=== PATIENT | male | born 1960 | race Caucasian/White ===

== ENCOUNTER 2018-01-05 02:22 | Emergency (ER) | payer BC, OTHER ==
[2018-01-05] MEDS ORDERED: Heparin Sodium 5,000 Units/ML Vial IVPUSH ONE ×2 (02:46→03:29)
[2018-01-05 02:59] LABS: CHLORIDE,CL 105 mmol/L (98-107); SODIUM,NA 141 mmol/L (136-145)
[2018-01-05 03:19] VITALS: BP 122/70
--- NOTE | 2018-01-05 03:27 | EDM.PDOC ---
ED HPI GENERAL MEDICAL PROBLEM - General Chief Complaint: Chest Pain Stated Complaint: CHEST Time Seen by Provider: 01/05/18 02:34 Source of Information: Reports: Patient History Limitations: Reports: No Limitations - History of Present Illness INITIAL COMMENTS - FREE TEXT/NARRATIVE: Patient brought in by EMS for complaint of superior sternal chest pain that radiated into patient's neck. Became diaphoretic. Took two nitro. Received 4 baby ASA give by EMS. By time of arrival to ER patient felt that pain had gone away. No SOB/respiratory changes. Has had a few intermittent similar episodes over the years. One formal workup by cardiology did not reveal specific heart disease. Pt was given Nitro to carry and use PRN however. Family hx significant for a brother with CAD. No other complaints at this time. - Related Data Allergies Allergy/AdvReac Type Severity Reaction Status Date / Time hydromorphone [From Dilaudid] Allergy Hypotension Verified 01/05/18 02:50 venom-honey bee Allergy Anaphylactic Verified 10/28/14 07:25 [bee venom (honey bee)] Shock fentanyl AdvReac Hypotension Verified 10/28/14 07:25 hydrocodone AdvReac Tachycardia Verified 10/28/14 07:25 Home Meds: Home Meds Ascorbate Calcium [Vitamin C] 500 mg PO DAILY 11/03/13 [History] Aspirin [Low Dose Aspirin EC] 81 mg PO DAILY 11/03/13 [History] Gluc HCl/Csa/[place] Hy/Hyalur Ac [Glucosamine Chondroitin] 1 each PO DAILY [History] Nitroglycerin [Nitrostat] 1 tab SL ASDIRECTED PRN 11/03/13 [History] Potassium 99 mg PO DAILY 11/03/13 [History] Albuterol Sulfate [Albuterol Sulfate HFA] 2 puff IH Q6HR PRN 10/05/14 [History] [place]-3/DHA/Epa/Fish Oil [Fish Oil 1,000 mg Softgel] 1 each PO DAILY 10/05/14 [ History] traMADol [Ultram] 50 mg PO Q6H PRN 10/28/14 [History] oxyCODONE 20 mg PO ASDIRECTED PRN 01/05/18 [History] Past Medical History Musculoskeletal History: Reports: Back Pain, Chronic Endocrine/Metabolic History: Reports: Obesity/BMI 30+ - Past Surgical History Other Musculoskeletal Surgeries/Procedures:: Remote history of back surgery Social & Family History - Tobacco Use Smoking Status *Q: Current Some Day Smoker Tobacco Use Within Last Twelve Months: Cigars - Alcohol Use Alcohol Use History: Yes Alcohol Use in Last Twelve Months: Yes Alcohol Use Frequency: Socially - Recreational Drug Use Recreational Drug Use: No Drug Use in Last 12 Months: No ED ROS GENERAL - Review of Systems Review Of Systems: See Below Constitutional: Reports: Diaphoresis. Denies: Fever, Weakness, Decreased Appetite HEENT: Reports: No Symptoms Respiratory: Reports: No Symptoms. Denies: Shortness of Breath, Pleuritic Chest Pain Cardiovascular: Reports: Chest Pain. Denies: Dyspnea on Exertion, Lightheadedness, Orthopnea, Palpitations GI/Abdominal: Reports: No Symptoms : Reports: No Symptoms Musculoskeletal: Reports: No Symptoms (no acute changes) Skin: Reports: No Symptoms Neurological: Reports: No Symptoms Psychiatric: Reports: No Symptoms Hematologic/Lymphatic: Reports: No Symptoms ED EXAM, GENERAL - Physical Exam Exam: See Below Exam Limited By: No Limitations General Appearance: Alert, No Apparent Distress, Obese Eye Exam: Bilateral Eye: EOMI, PERRL Ears: Normal External Exam Nose: Normal Inspection. No: Nasal Deformity, Nasal Swelling, Nasal Drainage Throat/Mouth: Normal Inspection, Normal Lips, Normal Voice, No Airway Compromise Head: Atraumatic, Normocephalic Neck: Normal Inspection, Supple, Non-Tender, Full Range of Motion. No: Lymphadenopathy (L), Lymphadenopathy (R) Respiratory/Chest: No Respiratory Distress, Lungs Clear, Normal Breath Sounds, No Accessory Muscle Use, Chest Non-Tender Cardiovascular: Normal Peripheral Pulses, Regular Rate, Rhythm, No Murmur Peripheral Pulses: 2+: Radial (L), Radial (R) GI/Abdominal: Normal Bowel Sounds, Soft, Non-Tender (Male) Exam: Deferred Rectal (Males) Exam: Deferred Back Exam: No: CVA Tenderness (L), CVA Tenderness (R) Extremities: Non-Tender, Normal Capillary Refill Neurological: Alert, Oriented, Normal Cognition, No Motor/Sensory Deficits Psychiatric: Normal Affect, Normal Mood Skin Exam: Warm, Dry, Intact, Normal Color EKG INTERPRETATION EKG Date: 01/05/18 Time: 02:25 Rhythm: Other (Sinus rhythm, 1st degree AV block) Rate (Beats/Min): 72 Zahl: LAD-Left Zahl Deviation P-Wave: Present QRS: Other (incomplete RBBB) ST-T: Other (Mild elevation noted V1-V4, III, AVF) QT: Normal Comparison: NA - No Prior EKG Course - Vital Signs Last Recorded V/S: Last Vital Signs Temp 36.9 C 01/05/18 02:24 Pulse 75 01/05/18 02:58 Resp 17 01/05/18 03:17 BP 122/70 01/05/18 03:17 Pulse Ox 97 01/05/18 03:17 - Orders/Labs/Meds Orders: Active Orders 24 hr Category Date Time Status EKG Documentation Completion [RC] ASDIRECTED Care 01/05/18 02:29 Active Chest 2V [CR] Stat Exams 01/05/18 02:32 Stop Req Heparin Sodium Med 01/05/18 03:29 Once 4,000 units IVPUSH ONETIME ONE Heparin Sodium/D5W [Heparin 25,000 Units in D5W 500 ML] Med 01/05/18 03:30 Ordered 25,000 units in 500 ml IV TITRATE Medication Orders Heparin Sodium/Dextrose (Heparin 25,000 Units In D5w 500 Ml) 25,000 units in 500 mls @ 29.937 mls/hr IV TITRATE AUBRIE; Protocol Labs: Laboratory Tests 01/05/18 01/05/18 01/05/18 Range/Units 02:30 02:30 02:30 WBC 7.4 (4.0-10.2) K/uL RBC 5.23 (4.33-5.41) M/uL Hgb 16.3 (13.1-16.8) g/dL Hct 45.6 (39.0-49.0) % MCV 87.2 (84.0-98.0) fL MCH 31.2 (28.2-33.3) pg MCHC 35.7 (31.7-36.0) g/dL RDW 13.0 (11.2-14.1) % Plt Count 163 (150-350) K/uL Neut % (Auto) 48.4 (45.0-80.0) % Lymph % (Auto) 40.2 (10.0-50.0) % [place] % (Auto) 8.4 (2.0-14.0) % Eos % (Auto) 2.3 (0.0-5.0) % Baso % (Auto) 0.7 (0.0-2.0) % Neut # (Auto) 3.60 (1.40-7.00) K/uL Lymph # (Auto) 2.98 (0.50-3.50) K/uL [place] # (Auto) 0.62 (0.00-1.00) K/uL Eos # (Auto) 0.17 (0.00-0.50) K/uL Baso # (Auto) 0.05 (0.00-0.20) K/uL PT 10.7 (9.8-11.7) SEC INR 1.0 D-Dimer, Quantitative (0-400) ng/mL Sodium 141 (136-145) mmol/L Potassium 3.2 L (3.5-5.1) mmol/L Chloride 105 (98-107) mmol/L Carbon Dioxide 20.7 L (21.0-32.0) mmol/L BUN 14 (7-18) mg/dL Creatinine 1.06 (0.51-1.17) mg/dL Est Cr Clr Drug Dosing 84.39 mL/min Estimated GFR (MDRD) > 60 mL/min Glucose 119 H (74-106) mg/dL Calcium 8.8 (8.5-10.1) mg/dL Total Bilirubin 0.3 (0.2-1.0) mg/dL AST 20 (15-37) U/L ALT 33 (12-78) U/L Alkaline Phosphatase 113 (46-116) IU/L Creatine Kinase 371 H (26-308) U/L Creatine Kinase Index 1.6 (0.0-2.5) % CK-MB (CK-2) 6.10 H* (0.00-3.60) ng/mL Troponin I 0.049 (0.000-0.056) ng/mL Total Protein 7.4 (6.4-8.2) g/dL Albumin 3.7 (3.4-5.0) g/dL 01/05/18 Range/Units 02:30 WBC (4.0-10.2) K/uL RBC (4.33-5.41) M/uL Hgb (13.1-16.8) g/dL Hct (39.0-49.0) % MCV (84.0-98.0) fL MCH (28.2-33.3) pg MCHC (31.7-36.0) g/dL RDW (11.2-14.1) % Plt Count (150-350) K/uL Neut % (Auto) (45.0-80.0) % Lymph % (Auto) (10.0-50.0) % [place] % (Auto) (2.0-14.0) % Eos % (Auto) (0.0-5.0) % Baso % (Auto) (0.0-2.0) % Neut # (Auto) (1.40-7.00) K/uL Lymph # (Auto) (0.50-3.50) K/uL [place] # (Auto) (0.00-1.00) K/uL Eos # (Auto) (0.00-0.50) K/uL Baso # (Auto) (0.00-0.20) K/uL PT (9.8-11.7) SEC INR D-Dimer, Quantitative < 100 (0-400) ng/mL Sodium (136-145) mmol/L Potassium (3.5-5.1) mmol/L Chloride (98-107) mmol/L Carbon Dioxide (21.0-32.0) mmol/L BUN (7-18) mg/dL Creatinine (0.51-1.17) mg/dL Est Cr Clr Drug Dosing mL/min Estimated GFR (MDRD) mL/min Glucose (74-106) mg/dL Calcium (8.5-10.1) mg/dL Total Bilirubin (0.2-1.0) mg/dL AST (15-37) U/L ALT (12-78) U/L Alkaline Phosphatase (46-116) IU/L Creatine Kinase (26-308) U/L Creatine Kinase Index (0.0-2.5) % CK-MB (CK-2) (0.00-3.60) ng/mL Troponin I (0.000-0.056) ng/mL Total Protein (6.4-8.2) g/dL Albumin (3.4-5.0) g/dL Meds: Medications Generic Name Dose Route Start Last Admin Trade Name Freq PRN Reason Stop Dose Admin Heparin Sodium/Dextrose 25,000 units in 500 mls @ 29.937 mls/hr 01/05/18 03: 30 Heparin 25,000 Units In D5w 500 Ml IV TITRATE AUBRIE Protocol 12 UNITS/KG/HR Discontinued Medications Generic Name Dose Route Start Last Admin Trade Name Freq PRN Reason Stop Dose Admin Heparin Sodium (Porcine) 4,000 units 01/05/18 02:46 Heparin Sodium IVPUSH 01/05/18 02:47 ONETIME ONE - Radiology Interpretation Free Text/Narrative:: Chest xray did not show pneumo/acute infectious process. - Re-Assessments/Exams Free Text/Narrative Re-Assessment/Exam: 01/05/18 03:38 Patient remained pain-free. Call placed to [facility]/EKGs faxed given ST elevation changes observed on ambulance EKG along with one performed in ER. from Cardiology reviewed the EKG. He felt that this did not reflect a STEMI given the diffuse nature of the ST changes. It was noted that the ST elevation noted in V1-4, III, AVF appeared to improve from the time that EMS performed their EKG until the time of the second EKG performed here at 0309. Troponin 0.049 (still within normal limits) CKMB elevated at 6.10 K 3.2 [facility] accepted the patient as a direct admit under . Patient given heparin bolus and subsequent IV drip prior to transfer. No additional meds were requested to be given prior to transfer by . Departure - Departure Time of Disposition: 03:42 Disposition: DC/[facility]fer to [facility] 02 Reason for Transfer *Q: Other Condition: Good Clinical Impression: Hypokalemia Chest pain Qualifiers: Chest pain type: unspecified Qualified Code(s): R07.9 - Chest pain, unspecified Forms: ED Department Discharge - My Orders Last 24 Hours: My Active Orders 01/05/18 02:29 EKG Documentation Completion [RC] ASDIRECTED 01/05/18 02:32 Chest 2V [CR] Stat 01/05/18 03:29 Heparin Sodium 4,000 units IVPUSH ONETIME ONE 01/05/18 03:30 Heparin Sodium/D5W [Heparin 25,000 Units in D5W 500 ML] 25,000 units in 500 ml IV TITRATE - Assessment/Plan Last 24 Hours: My Active Orders 01/05/18 02:29 EKG Documentation Completion [RC] ASDIRECTED 01/05/18 02:32 Chest 2V [CR] Stat 01/05/18 03:29 Heparin Sodium 4,000 units IVPUSH ONETIME ONE 01/05/18 03:30 Heparin Sodium/D5W [Heparin 25,000 Units in D5W 500 ML] 25,000 units in 500 ml IV TITRATE
[2018-01-05] MEDS ORDERED: Heparin Sodium/D5W 25,000 UNITS/500 ML BAG IV SCH (03:30)
[2018-01-05] MEDS ORDERED: Potassium Chloride 20 MEQ Tab.ER PO ONE (03:43)
== END 2018-01-05 03:50 ==
LOC: LL.ED 02:22
DX: R07.9 Chest pain, unspecified (principal); E87.6 Hypokalemia; F17.290 Nicotine dependence, other tobacco product, uncomplicated; Z88.8 Allergy status to other drugs, medicaments and biological substances; Z79.899 Other long term (current) drug therapy; Z79.82 Long term (current) use of aspirin
CPT/HCPCS: 36000; 36415; 71046; 80053; 82550; 82553; 84484; 85025; 85379; 85610; 93005; 96374; 96375; 99291; J1644